=== PATIENT | male | born 1955 | race Caucasian/White ===

== ENCOUNTER 2018-09-26 09:40 | Emergency (ER) | payer BC ==
[2018-09-26] MEDS ORDERED: Acetaminophen/HYDROcodone 325-5 MG Tab ONE (10:00)
[2018-09-26] MEDS ORDERED: Penicillin V Potassium 250 MG Tab ONE (10:00)
--- NOTE | 2018-09-26 20:03 | PN ---
DATE OF VISIT: SUBJECTIVE: The patient is a 63-year-old male who comes in today noting his tooth hurts. He broke off the left upper incisor, contacted the dentist who suggested he come to the emergency room for consideration of a possible antibiotic. The patient has no allergies, is on no home medications. OBJECTIVE: GENERAL: On physical exam, he is alert, oriented, no apparent distress. VITAL SIGNS: Temperature is 98.1, pulse is 97, blood pressure is 156/97, O2 saturation is 99% on room air. HEENT: Generally unremarkable other than the patient has poor dentition with broken off incisor on the left side. There is some swelling of the gum around it and the swelling extends up on to his left upper lip and his cheek. LUNGS: Clear. HEART: Regular sinus rhythm. ASSESSMENT: Dental abscess. PLAN: I have put the patient on some penicillin VK 500 mg 1 p.o. q.6. I have given him 10 Vicodin 5/325 one to two p.o. q.4-6h. I have encouraged him to see the dentist as soon as possible. Also encouraged him to return to clinic to get his blood pressure checked. If it remains elevated, he will likely need medication for this. RAMA/LUISA /[id number]
== END 2018-09-26 12:43 | disposition home or self-care (01) ==
LOC: LB.ED 09:40
DX: K04.7 Periapical abscess without sinus (principal)
CPT/HCPCS: 99282; A9270

== ENCOUNTER 2018-10-13 15:19 | Emergency (ER) | payer BC, OTHER ==
[2018-10-13] MEDS ORDERED: Ketorolac 30 MG/ML SDV ONE (16:40)
[2018-10-13] MEDS ORDERED: traMADol 50 MG Tab ONE (20:00)
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
[2018-10-14] MEDS ORDERED: Sodium Chloride 0.9% 10 ML Syringe FLUSH PRN (08:51)
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
== END 2018-10-13 16:52 | disposition home or self-care (01) ==
LOC: LB.ED 15:19
DX: S01.311A Laceration without foreign body of right ear, initial encounter (principal); S20.211A Contusion of right front wall of thorax, initial encounter; S00.83XA Contusion of other part of head, initial encounter; V89.2XXA Person injured in unspecified motor-vehicle accident, traffic, initial encounter
CPT/HCPCS: 70450; 70480; 71250; 72125; 73030; 74150; 99284; J1885; A9270-GY

== ENCOUNTER 2025-05-18 08:28 | Day surgery (SDC) | payer MEDICARE ==
[2025-05-18] MEDS ORDERED: Propofol 500 MG/50 ML SDV ONE (10:30)
== END 2025-05-18 11:53 | disposition home or self-care (01) ==
LOC: LB.SDS 08:28
PROVIDERS: ATTEND Surgery
DX: K22.10 Ulcer of esophagus without bleeding (principal); K57.30 Diverticulosis of large intestine without perforation or abscess without bleeding; D64.9 Anemia, unspecified; I10 Essential (primary) hypertension; F17.200 Nicotine dependence, unspecified, uncomplicated; Z79.82 Long term (current) use of aspirin; Z79.899 Other long term (current) drug therapy
CPT/HCPCS: 43239; 45385; J2704; J7030; 88305; 88312